=== PATIENT | female | born 1935 | race Caucasian/White ===

== ENCOUNTER 2018-06-28 00:48 | Inpatient (IN) | payer MEDICARE, BC ==
[~2018-06-28] VITALS: Ht 160 cm; Wt 80.0 kg
[~2018-06-28 00:48] MED LIST: ASPI-416 PO; CALC-212 PO; CHOL10006 PO; LOSA100T57 PO; MULT1TAB74 PO; OMEG1CAP21 PO; OMEP-50 PO; ONDA4TAB12 PO; ONDA4TAB6 PO; OXYC-511 PO; PROP20TA6 PO
[2018-06-28] MEDS ORDERED: ondansetron/PF 4mg/2ml inj IV ONE (01:10)
[2018-06-28] MEDS ORDERED: morphine 4 MG/ML inj SYRINge IV PRN ×3 (01:10→05:20)
[2018-06-28 01:36] LABS: BASOPHILS % (AUTO) 0.4 % (0-1); EOSINOPHILS # (AUTO) 0.2 X10'3 (0-0.9); EOSINOPHILS % (AUTO) 2.2 % (0-6); HEMATOCRIT 35.7 % (35.0-45.0); HEMOGLOBIN 12.1 g/dl (12.0-16.0); LYMPHOCYTES # (AUTO) 1.9 X10'3 (1.1-4.8); LYMPHOCYTES % (AUTO) 25.1 % (21-51); MEAN CORPUSCULAR HEMOGLOBIN 32.5 PG (27.0-31.0); MEAN CORPUSCULAR HGB CONC 33.8 % (33.0-36.5); MEAN PLATELET VOLUME 7.8 FL (7.4-10.4); MONOCYTES # (AUTO) 0.7 X10'3 (0-0.9); MONOCYTES % (AUTO) 8.5 % (2-12); NEUTROPHILS # (AUTO) 4.9 X10'3 (1.8-7.7); NEUTROPHILS % (AUTO) 63.8 % (42-75); PLATELET COUNT 399 X10'3 (140-440); RED BLOOD COUNT 3.71 X10'6 (4.20-5.60); RED CELL DISTRIBUTION WIDTH 13.2 % (11.5-14.5); WHITE BLOOD COUNT 7.7 X10'3 (4.5-11.0)
[2018-06-28 01:44] LABS: ALANINE AMINOTRANSFERASE 37 U/L (12-78); ALBUMIN 3.5 G/DL (3.4-5.0); ALKALINE PHOSPHATASE 82 IU/L (46-116); ANION GAP 10 (8-16); ASPARTATE AMINO TRANSFERASE 28 U/L (10-37); BILIRUBIN,TOTAL 0.4 MG/DL (0.1-1.0); BLOOD UREA NITROGEN 24 MG/DL (7-18); BUN/CREATININE RATIO 23.5 (6.6-38.0); CALCIUM 9.3 MG/DL (8.5-10.1); CHLORIDE 101 MMOL/L (99-107); CREATININE 1.02 MG/DL (0.40-0.90); GLUCOSE 133 MG/DL (70-104); LIPASE 81 U/L (73-393); POTASSIUM 3.8 MMOL/L (3.5-5.1); SODIUM 138 MMOL/L (135-145); TOTAL CARBON DIOXIDE 26.9 MMOL/L (24-32); eGFR 52 ML/MIN
[2018-06-28 01:45] LABS: CLARITY,URINE CLOUDY (Clear); COLOR,URINE YELLOW (Yellow); GLUCOSE, URINE NEGATIVE (Neg); KETONES,URINE TRACE mg/dl (Neg); LEUKOCYTE ESTERASE ,URINE LARGE (Neg); NITRITES, URINE POSITIVE (Neg); OCCULT BLOOD,URINE MODERATE (Neg); PH,URINE 5.5 (4.8-8.0); PROTEIN,URINE NEGATIVE (Neg); UROBILINOGEN,URINE 0.2 E.U/dL (0.2-1.0)
[2018-06-28 01:50] LABS: UA COLLECTION TYPE CLN CATCH MIDSTREAM
[2018-06-28 01:51] LABS: WBC,URINE TNTC /HPF (0-4)
[2018-06-28 01:52] LABS: BACTERIA,URINE 4+ /HPF (Neg); MUCUS STRANDS NONE SEEN /LPF (Neg); SQUAMOUS EPITHELIAL CELL,UR NONE SEEN /LPF (FEW)
[2018-06-28] MEDS ORDERED: CIPR-230 PO (02:13)
[2018-06-28] MEDS ORDERED: ciprofloxacin 250mg tablet PO ONE (02:15)
[2018-06-28] MEDS ORDERED: normal saline 1000ML IV soln IVB ONE (03:30)
[2018-06-28] MEDS ORDERED: TRAM50TA2 PO (04:03)
[2018-06-28] MEDS ORDERED: CELE-193 PO (04:03)
[2018-06-28] MEDS ORDERED: SENN-162 PO (04:03)
[2018-06-28] MEDS ORDERED: CALC-787 PO (04:03)
[2018-06-28] MEDS: normal saline 1000ml 1,000 ML IV SCH ×2 (05:17→15:17)
[2018-06-28] MEDS ORDERED: ondansetron/PF 4mg/2ml inj IV PRN (05:20)
--- NOTE | 2018-06-28 06:44 | NUR ---
RECEIVED REPORT FROM ER. PT COMING TO FLOOR SOON
[2018-06-28 07:30] VITALS: BP 123/48
[2018-06-28] MEDS ORDERED: traMADol 50MG tablet PO PRN (08:00)
[2018-06-28] MEDS: losartan 50mg tablet PO SCH (08:33)
[2018-06-28] MEDS: heparin, porcine 5000 units/ml vial SQ SCH ×2 (08:33→20:23)
[2018-06-28] MEDS: propranolol 10mg tablet PO SCH ×2 (08:33→20:22)
[2018-06-28] MEDS: aspirin 81mg tablet.DR PO SCH (08:33)
[2018-06-28] MEDS: pantoprazole 40mg Tablet.DR PO SCH (08:34)
[2018-06-28] MEDS ORDERED: pneumococcal 23-VAL P-sac vacc 25 mcg/0.5ml vial IMVAC ONE (10:00)
[2018-06-28 11:00] VITALS: BP 145/56
--- NOTE | 2018-06-28 18:00 | NUR ---
Problems reprioritized. Patient report given, questions answered & plan of care reviewed with KARLO CRUMP.
--- NOTE | 2018-06-28 19:37 | NUR ---
Patient in room [facility]. I have received report from THERON Fuentes and had the opportunity to ask questions and assume patient care. Addendum: 06/28/18 at 1937 by Hannah Will RN Amended: Links added.
[2018-06-28 19:53] VITALS: BP 141/46
[2018-06-28] MEDS: ciprofloxacin 250mg tablet PO SCH (20:22)
[2018-06-28] MEDS ORDERED: sennosides 8.6mg tablet PO SCH (21:00)
[2018-06-28 23:55] VITALS: BP 114/46
[2018-06-29] MEDS: normal saline 1000ml 1,000 ML IV SCH ×2 (01:18→11:04)
[2018-06-29 05:15] LABS: BASOPHILS % (AUTO) 0.9 % (0-1); EOSINOPHILS # (AUTO) 0.2 X10'3 (0-0.9); EOSINOPHILS % (AUTO) 4.1 % (0-6); HEMATOCRIT 29.6 % (35.0-45.0); HEMOGLOBIN 9.9 g/dl (12.0-16.0); LYMPHOCYTES # (AUTO) 1.9 X10'3 (1.1-4.8); LYMPHOCYTES % (AUTO) 43.4 % (21-51); MEAN CORPUSCULAR HEMOGLOBIN 32.5 PG (27.0-31.0); MEAN CORPUSCULAR HGB CONC 33.4 % (33.0-36.5); MEAN CORPUSCULAR VOLUME 97.1 FL (78-98); MEAN PLATELET VOLUME 8.1 FL (7.4-10.4); MONOCYTES # (AUTO) 0.5 X10'3 (0-0.9); MONOCYTES % (AUTO) 11.3 % (2-12); NEUTROPHILS # (AUTO) 1.8 X10'3 (1.8-7.7); NEUTROPHILS % (AUTO) 40.3 % (42-75); PLATELET COUNT 321 X10'3 (140-440); RED BLOOD COUNT 3.05 X10'6 (4.20-5.60); RED CELL DISTRIBUTION WIDTH 13.4 % (11.5-14.5); WHITE BLOOD COUNT 4.4 X10'3 (4.5-11.0)
[2018-06-29 05:30] LABS: ALANINE AMINOTRANSFERASE 34 U/L (12-78); ALBUMIN 2.7 G/DL (3.4-5.0); ALKALINE PHOSPHATASE 66 IU/L (46-116); ANION GAP 10 (8-16); ASPARTATE AMINO TRANSFERASE 24 U/L (10-37); BILIRUBIN,TOTAL 0.3 MG/DL (0.1-1.0); BLOOD UREA NITROGEN 14 MG/DL (7-18); BUN/CREATININE RATIO 18.7 (6.6-38.0); CALCIUM 8.9 MG/DL (8.5-10.1); CHLORIDE 108 MMOL/L (99-107); CREATININE 0.75 MG/DL (0.40-0.90); GLUCOSE 84 MG/DL (70-104); POTASSIUM 3.8 MMOL/L (3.5-5.1); SODIUM 140 MMOL/L (135-145); TOTAL CARBON DIOXIDE 22.2 MMOL/L (24-32); TOTAL PROTEIN 5.4 G/DL (6.4-8.2); eGFR 74 ML/MIN
--- NOTE | 2018-06-29 06:06 | NUR ---
Problems reprioritized. Patient report given, questions answered & plan of care reviewed with THERON Pabon. Addendum: 06/29/18 at 0606 by Hannah Will RN Amended: Links added.
--- NOTE | 2018-06-29 06:07 | NUR ---
Problems reprioritized. Patient report given, questions answered & plan of care reviewed with THERON Pabon. Addendum: 06/29/18 at 0607 by Hannah Will RN Amended: Links added.
--- NOTE | 2018-06-29 06:30 | NUR ---
Patient report received, questions answered & plan of care reviewed with THERON Young.
[2018-06-29 08:00] VITALS: BP 138/58
[2018-06-29] MEDS: pantoprazole 40mg Tablet.DR PO SCH (08:19)
[2018-06-29] MEDS: aspirin 81mg tablet.DR PO SCH (08:20)
[2018-06-29] MEDS: losartan 50mg tablet PO SCH (08:20)
[2018-06-29] MEDS: ciprofloxacin 250mg tablet PO SCH (08:20)
[2018-06-29] MEDS: heparin, porcine 5000 units/ml vial SQ SCH (08:22)
[2018-06-29] MEDS: propranolol 10mg tablet PO SCH (08:23)
--- NOTE | 2018-06-29 10:00 | NUR ---
Patient in room [facility]. I have received report from Pepper CRUMP and had the opportunity to ask questions and assume patient care.
[2018-06-29 11:00] VITALS: BP 133/50
[2018-06-29] MEDS ORDERED: CIPR-230 PO (12:28)
--- NOTE | 2018-06-29 14:36 | NUR ---
patient seen by Dr Dexter is for DC. ALL DC instructions given to patient . family present. Patient DC home via private car with family. appears stable for DC
== END 2018-06-29 14:52 | disposition home or self-care (01) | DRG 389 ==
LOC: ER 00:49 → ED HOLD 05:17 → SUR 3N 06:49
PROVIDERS: ADMIT Internal Medicine; ATTEND Family Medicine
PROC: 3E02340 Introduction of Influenza Vaccine into Muscle, Percutaneous Approach (ICD-10-PCS; principal; 2018-06-28)
PROC: 3E0234Z Introduction of Serum, Toxoid and Vaccine into Muscle, Percutaneous Approach (ICD-10-PCS; 2018-06-28)
DX: K56.609 Unspecified intestinal obstruction, unspecified as to partial versus complete obstruction (principal); N39.0 Urinary tract infection, site not specified; I10 Essential (primary) hypertension; K21.9 Gastro-esophageal reflux disease without esophagitis; G89.29 Other chronic pain; M54.9 Dorsalgia, unspecified; Z23 Encounter for immunization; Z93.3 Colostomy status; Z90.49 Acquired absence of other specified parts of digestive tract; Z79.82 Long term (current) use of aspirin; Z79.899 Other long term (current) drug therapy; Z85.048 Personal history of other malignant neoplasm of rectum, rectosigmoid junction, and anus
CPT/HCPCS: 36415; 74176; 80053; 81001; 83690; 85025; 87070; 87077; 87088; 87186; 90732; 96361; 96374; 96375; 99285; G0378; J1644; J2270; J2405; J7030

== ENCOUNTER 2018-09-13 02:55 | Inpatient (IN) | payer MEDICARE, BC, OTHER ==
[~2018-09-13] VITALS: Ht 160 cm; Wt 77.2 kg
[~2018-09-13 02:55] MED LIST changes: -CALC-212 PO; +CELE-193 PO; -CHOL10006 PO; -MULT1TAB74 PO; -OMEG1CAP21 PO; -ONDA4TAB12 PO; -ONDA4TAB6 PO; -OXYC-511 PO; +SENN-162 PO; +TRAM50TA2 PO
[2018-09-13] MEDS ORDERED: ondansetron/PF 4mg/2ml inj IV ONE (03:10)
[2018-09-13] MEDS ORDERED: normal saline 1000ML IV soln IVB ONE (03:10)
[2018-09-13] MEDS ORDERED: morphine 4 MG/ML inj SYRINge IV PRN ×3 (03:10→07:25)
[2018-09-13 03:46] LABS: BASOPHILS # (AUTO) 0.1 X10'3 (0-0.2); BASOPHILS % (AUTO) 0.5 % (0-1); EOSINOPHILS # (AUTO) 0.2 X10'3 (0-0.9); EOSINOPHILS % (AUTO) 1.6 % (0-6); HEMATOCRIT 37.8 % (35.0-45.0); HEMOGLOBIN 12.5 g/dl (12.0-16.0); LYMPHOCYTES # (AUTO) 1.3 X10'3 (1.1-4.8); LYMPHOCYTES % (AUTO) 13.5 % (21-51); MEAN CORPUSCULAR HGB CONC 33.2 g/dL (33.0-36.5); MEAN CORPUSCULAR VOLUME 96.5 FL (78-98); MEAN PLATELET VOLUME 7.8 FL (7.4-10.4); MONOCYTES # (AUTO) 0.5 X10'3 (0-0.9); MONOCYTES % (AUTO) 5.4 % (2-12); NEUTROPHILS # (AUTO) 7.9 X10'3 (1.8-7.7); PLATELET COUNT 369 X10'3 (140-440); RED BLOOD COUNT 3.91 X10'6 (4.20-5.60); RED CELL DISTRIBUTION WIDTH 14.1 % (11.5-14.5)
[2018-09-13 03:53] LABS: PROTHROMBIN TIME 9.7 SECONDS (9.0-12.0)
[2018-09-13 03:56] LABS: ALANINE AMINOTRANSFERASE 20 U/L (12-78); ALBUMIN 3.5 G/DL (3.4-5.0); ALBUMIN/GLOBULIN RATIO 1.1 (1.1-1.5); ALKALINE PHOSPHATASE 66 IU/L (46-116); ANION GAP 7 (8-16); ASPARTATE AMINO TRANSFERASE 18 U/L (10-37); BILIRUBIN,TOTAL 0.3 MG/DL (0.1-1.0); BLOOD UREA NITROGEN 34 MG/DL (7-18); BUN/CREATININE RATIO 28.8 (6.6-38.0); CHLORIDE 105 MMOL/L (99-107); CREATININE 1.18 MG/DL (0.40-0.90); GLUCOSE 119 MG/DL (70-104); POTASSIUM 4.1 MMOL/L (3.5-5.1); SODIUM 139 MMOL/L (135-145); TOTAL CARBON DIOXIDE 26.6 MMOL/L (24-32); TOTAL PROTEIN 6.7 G/DL (6.4-8.2); eGFR 44 ML/MIN
[2018-09-13] MEDS ORDERED: iohexol 300mg/ml 100ml inj. ONE (04:05)
[2018-09-13] MEDS ORDERED: OMEP40CA37 PO (06:47)
[2018-09-13] MEDS ORDERED: CALC-854 PO (06:47)
[2018-09-13] MEDS ORDERED: PROP10TA10 PO (06:48)
[2018-09-13] MEDS ORDERED: normal saline 1000ml 1,000 ML IV SCH (07:24)
[2018-09-13] MEDS ORDERED: mag hydrox/Alum hydrox/simeth 30ml oral suspension PO PRN (07:25)
[2018-09-13] MEDS ORDERED: ondansetron/PF 4mg/2ml inj IV PRN (07:25)
[2018-09-13] MEDS ORDERED: acetaminophen 325mg tablet PO PRN (07:25)
[2018-09-13] MEDS ORDERED: magnesium hydroxide 30ml (MOM) UD suspension PO PRN (07:25)
[2018-09-13 13:31] VITALS: BP 145/72
== END 2018-09-13 13:31 | disposition home or self-care (01) | DRG 390 ==
LOC: ER 02:56 → ED HOLD 07:24
PROVIDERS: ADMIT Family Medicine; ATTEND Family Medicine
PROC: BW211ZZ Computerized Tomography (CT Scan) of Abdomen and Pelvis using Low Osmolar Contrast (ICD-10-PCS; principal; 2018-09-13)
DX: K56.600 Partial intestinal obstruction, unspecified as to cause (principal); I10 Essential (primary) hypertension; K21.9 Gastro-esophageal reflux disease without esophagitis; G89.29 Other chronic pain; M54.9 Dorsalgia, unspecified; Z85.048 Personal history of other malignant neoplasm of rectum, rectosigmoid junction, and anus; Z93.3 Colostomy status; Z90.49 Acquired absence of other specified parts of digestive tract
CPT/HCPCS: 36415; 74177; 80053; 83605; 85025; 85610; 87070; 96361; 96374; 96375; 99285; G0378; J2270; J2405; Q9967

== ENCOUNTER 2018-10-29 12:44 | Emergency (ER) | payer MEDICARE, BC ==
[~2018-10-29] VITALS: Ht 160 cm; Wt 77.0 kg
[~2018-10-29 12:44] MED LIST changes: -OMEP-50 PO; +OMEP40CA37 PO; +PROP10TA10 PO; -PROP20TA6 PO
[2018-10-29] MEDS ORDERED: fentaNYL/PF 50MCG/1 ML 2ML syringe IV ONE (14:05)
[2018-10-29] MEDS ORDERED: propofol 10mg/ml 20ml vial IV STA (14:31)
[2018-10-29] MEDS ORDERED: LIDOcaine 1% 30ml preserv. free vial IJ STA ×2 (15:03→15:07)
--- NOTE | 2018-10-29 15:09 | NUR ---
DR. GARCIA CHANGED PROCEDURE FROM MODERATE SEDATION TO HEMATOMA BLOCK.
--- NOTE | 2018-10-29 15:10 | NUR ---
PENELOPE COHN AT BEDSIDE. ADMINISTERED LIDOCAINE FOR BLOCK. SUPERVISOR ADULT EDUCATION AT BEDSIDE.
--- NOTE | 2018-10-29 15:46 | NUR ---
HEMATOMA BLOCK UNSUCCESSFUL. DR. GARCIA TO PERFORM MODERATE SEDATION. 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 RT PAGED.
[2018-10-29 16:38] VITALS: BP 154/76
== END 2018-10-29 16:42 | disposition home or self-care (01) ==
LOC: ER 12:44
DX: S52.592A Other fractures of lower end of left radius, initial encounter for closed fracture (principal); S52.692A Other fracture of lower end of left ulna, initial encounter for closed fracture; I10 Essential (primary) hypertension; K21.9 Gastro-esophageal reflux disease without esophagitis; G89.29 Other chronic pain; Z85.038 Personal history of other malignant neoplasm of large intestine; Z98.890 Other specified postprocedural states; Z90.49 Acquired absence of other specified parts of digestive tract; Z79.899 Other long term (current) drug therapy; Z79.82 Long term (current) use of aspirin; W19.XXXA Unspecified fall, initial encounter; Y93.89 Activity, other specified; Y92.89 Other specified places as the place of occurrence of the external cause; Y99.9 Unspecified external cause status
CPT/HCPCS: 25605; 73110; 96374; 99285; J2704; J3010; J3490; 99152

== ENCOUNTER 2018-10-31 11:43 | Emergency (ER) | payer MEDICARE, BC ==
[~2018-10-31] VITALS: Ht 160 cm; Wt 77.3 kg
[2018-10-31 12:12] VITALS: BP 168/84
[2018-10-31] MEDS ORDERED: HYDR-4383 PO (14:19)
[2018-10-31] MEDS ORDERED: HYDROcodone/acetaminophen 5mg/325mg tablet PO ONE (14:20)
== END 2018-10-31 14:33 | disposition home or self-care (01) ==
LOC: ER 11:43
DX: S52.592D Other fractures of lower end of left radius, subsequent encounter for closed fracture with routine healing (principal); S52.692D Other fracture of lower end of left ulna, subsequent encounter for closed fracture with routine healing; I10 Essential (primary) hypertension; K21.9 Gastro-esophageal reflux disease without esophagitis; G89.29 Other chronic pain; Z85.038 Personal history of other malignant neoplasm of large intestine; Z90.49 Acquired absence of other specified parts of digestive tract; Z98.890 Other specified postprocedural states; Z79.82 Long term (current) use of aspirin; Z79.899 Other long term (current) drug therapy; W18.39XD Other fall on same level, subsequent encounter
CPT/HCPCS: 99284

== ENCOUNTER 2018-11-09 14:43 | Outpatient (CLI) | payer MEDICARE, BC ==
[2018-11-09 09:42] VITALS: BP 134/72
[~2018-11-09 14:43] MED LIST changes: +HYDR-4383 PO
== END 2018-11-09 15:44 | disposition home or self-care (01) ==
LOC: ORTHO 14:43
PROVIDERS: ATTEND Orthopaedic Surgery
DX: S52.592D Other fractures of lower end of left radius, subsequent encounter for closed fracture with routine healing (principal); X58.XXXD Exposure to other specified factors, subsequent encounter
CPT/HCPCS: 29075; 73110; 99213

== ENCOUNTER 2018-12-01 11:30 | Outpatient (CLI) | payer MEDICARE, BC ==
[2018-12-01 11:36] VITALS: BP 149/77
== END 2018-12-01 12:38 | disposition home or self-care (01) ==
LOC: ORTHO 11:30
PROVIDERS: ATTEND Orthopaedic Surgery
DX: S52.202D Unspecified fracture of shaft of left ulna, subsequent encounter for closed fracture with routine healing (principal); S52.502D Unspecified fracture of the lower end of left radius, subsequent encounter for closed fracture with routine healing; X58.XXXD Exposure to other specified factors, subsequent encounter
CPT/HCPCS: 73110; G0463

== ENCOUNTER 2018-12-28 13:29 | Outpatient (CLI) | payer MEDICARE, BC | END 2018-12-28 14:20 | disposition home or self-care (01) | LOC: ORTHO 13:29 | PROVIDERS: ATTEND Orthopaedic Surgery | DX: S52.592D Other fractures of lower end of left radius, subsequent encounter for closed fracture with routine healing (principal); S52.692D Other fracture of lower end of left ulna, subsequent encounter for closed fracture with routine healing; I10 Essential (primary) hypertension; X58.XXXD Exposure to other specified factors, subsequent encounter | CPT/HCPCS: 73110; G0463 ==

== ENCOUNTER 2019-06-16 17:40 | Emergency (ER) | payer MEDICARE ==
[~2019-06-16] VITALS: Ht 160 cm; Wt 75.0 kg
[~2019-06-16 17:40] MED LIST changes: +OMEP40CA13 PO; -OMEP40CA37 PO
[2019-06-16] MEDS ORDERED: HYDROcodone/acetaminophen 5mg/325mg tablet PO ONE (18:35)
[2019-06-16] MEDS ORDERED: ondansetron 4mg rapidly disintigrating tab PO ONE (18:40)
[2019-06-16] MEDS ORDERED: cephalexin 250mg capsule PO ONE (18:45)
[2019-06-16] MEDS ORDERED: TETanus/Pertussis (Acell)/Diphther VAC/PF (Tdap-Adult) 0.5ml syringe IMVAC ONE (18:55)
[2019-06-16] MEDS ORDERED: LIDOcaine 1% W/epiNEPHrine 1:200,000 10ml vial IJ ONE (18:55)
[2019-06-16] MEDS ORDERED: fentaNYL/PF 50MCG/1 ML 2ML syringe IM ONE (19:20)
[2019-06-16 20:10] VITALS: BP 134/73
[2019-06-16] MEDS ORDERED: CEPH500C5 PO (20:38)
[2019-06-16] MEDS ORDERED: HYDR-3965 PO (20:38)
== END 2019-06-16 21:12 | disposition home or self-care (01) ==
LOC: ER 17:42
DX: S52.592A Other fractures of lower end of left radius, initial encounter for closed fracture (principal); S52.692A Other fracture of lower end of left ulna, initial encounter for closed fracture; S41.112A Laceration without foreign body of left upper arm, initial encounter; I10 Essential (primary) hypertension; K21.9 Gastro-esophageal reflux disease without esophagitis; G89.29 Other chronic pain; Z90.49 Acquired absence of other specified parts of digestive tract; Z85.038 Personal history of other malignant neoplasm of large intestine; Z60.2 Problems related to living alone; Z79.899 Other long term (current) drug therapy; Z79.82 Long term (current) use of aspirin; W01.0XXA Fall on same level from slipping, tripping and stumbling without subsequent striking against object, initial encounter; Y93.89 Activity, other specified; Y92.89 Other specified places as the place of occurrence of the external cause; Y99.8 Other external cause status
CPT/HCPCS: 12001; 25605; 73090; 73100; 90471; 90715; 96372; 99284; J3010

== ENCOUNTER → 2019-07-04 | Day surgery (SDC) | payer MEDICARE ==
[2019-07-04] VITALS (8 sets, daily range): BP systolic 123–147; BP diastolic 62–75
[~2019-07-04] VITALS: Ht 160 cm; Wt 76.9 kg
[~2019-07-04] MED LIST changes: +BUPIVAcaine/PF 2.5 mg/ml (0.25%) 30ml vial ONE; +CEPH500C5 PO; +HYDR-3965 PO; +LIDOcaine 2% (20mg/ml) 5ml vial ONE; +ROPIVAcaine 0.5% (5mg/ml) 30ml vial ONE; +ceFAZolin 1GM/D5W- ADD-VANTAGE 50 ML IV ONE; +dexamethasone sod phosphate 10mg/ml inj ONE; +famotidine 10mg tablet PO ONE; +fentaNYL/PF 50MCG/1 ML 2ML syringe IV PRN; +hydrALAZINE 20mg/ml inj. IV PRN; +labetalol 20mg/4ml (5mg/ml) syringe IV PRN; +midazolam 2 mg/2 ml injection ONE; +morphine 4 MG/ML inj SYRINge IV PRN; +ondansetron/PF 4mg/2ml inj IV PRN; +ondansetron/PF 4mg/2ml inj ONE; +propofol inj 20 ML IV ONE; +ringers solution, lacted 1,000 ML IV ONE; +ringers solution, lacted 1,000 ML IV SCH; +sevoflurane 250ml liquid IH ONE
[2019-07-04 14:59] LABS: BASOPHILS # (AUTO) 0.1 X10'3 (0-0.2); EOSINOPHILS # (AUTO) 0.2 X10'3 (0-0.9); EOSINOPHILS % (AUTO) 3.2 % (0-6); LYMPHOCYTES % (AUTO) 29.9 % (21-51); MEAN CORPUSCULAR HEMOGLOBIN 33.1 PG (27.0-31.0); MEAN CORPUSCULAR VOLUME 97.2 FL (78-98); MEAN PLATELET VOLUME 7.5 FL (7.4-10.4); MONOCYTES # (AUTO) 0.6 X10'3 (0-0.9); MONOCYTES % (AUTO) 8.8 % (2-12); NEUTROPHILS # (AUTO) 3.9 X10'3 (1.8-7.7); NEUTROPHILS % (AUTO) 57.1 % (42-75); PRE OP HEMATOCRIT 34.9 % (35.0-45.0); PRE OP HEMOGLOBIN 11.9 g/dL (12.0-16.0); PRE OP PLATELET COUNT 429 X10'3 (140-440); RED BLOOD COUNT 3.59 X10'6 (4.20-5.60); RED CELL DISTRIBUTION WIDTH 13.6 % (11.5-14.5)
[2019-07-04 15:05] LABS: PARTIAL THROMBOPLASTIN TIME 26 SECONDS (22-32)
[2019-07-04 15:11] LABS: ALBUMIN 3.5 G/DL (3.4-5.0); ALBUMIN/GLOBULIN RATIO 1.1 (1.1-1.5); ALKALINE PHOSPHATASE 87 IU/L (46-116); BLOOD UREA NITROGEN 26 MG/DL (7-18); CALCIUM 9.5 MG/DL (8.5-10.1); CHLORIDE 107 MMOL/L (99-107); PRE OP ALT 17 U/L (30-65); PRE OP ANION GAP 8 (8-16); PRE OP AST 13 U/L (10-37); PRE OP BILIRUB, TOTAL 0.3 MG/DL (0.0-1.0); PRE OP GLUCOSE 93 MG/DL (70-104); PRE OP POTASSIUM 4.4 MMOL/L (3.4-5.1); PRE OP SODIUM 138 MMOL/L (135-145); TOTAL PROTEIN 6.6 G/DL (6.4-8.2); eGFR 53 ML/MIN
--- NOTE | 2019-07-04 17:05 | NUR ---
Received from OR via , accompanied by Anesthesiologist CASSIE and report given by Anesthesiolgist. AWAKE IN NO RESP DISTRESS SKIN WARM AND DRY HOB AND LUE ELEVATED. FINGERS WARM PINK GOOD CAP REFILL, WITH MOVEMENT. NO CO PAIN.
== END | disposition home or self-care (01) ==
LOC: PAS 13:32
PROVIDERS: ATTEND Orthopaedic Surgery
DX: S52.322A Displaced transverse fracture of shaft of left radius, initial encounter for closed fracture (principal); S52.222A Displaced transverse fracture of shaft of left ulna, initial encounter for closed fracture; I10 Essential (primary) hypertension; K21.9 Gastro-esophageal reflux disease without esophagitis; G89.29 Other chronic pain; Z85.038 Personal history of other malignant neoplasm of large intestine; Z90.49 Acquired absence of other specified parts of digestive tract; Z98.890 Other specified postprocedural states; G89.18 Other acute postprocedural pain; Z79.01 Long term (current) use of anticoagulants; X58.XXXA Exposure to other specified factors, initial encounter; Y93.89 Activity, other specified; Y92.89 Other specified places as the place of occurrence of the external cause; Y99.8 Other external cause status
CPT/HCPCS: 25515; 36415; 64415; 73090; 76000; 80053; 85025; 85610; 85730; 93005; A6222; C1713; J0690; J1100; J2001; J2250; J2405; J2704; J3490; J7120; A4618; A6449; A7000; J2795